=== PATIENT | male | born 1965 | race Caucasian/White ===

== ENCOUNTER 2020-06-29 05:56 | Inpatient (IN) ==
--- NOTE | 2020-02-03 13:07 | PAT Medication Instructions ---
Medication Instructions Date of Service February 03, 2020 Home Medications naproxen sodium [Aleve] 440 mg PO UD PRN propranolol 20 mg PO UD PRN ASK your surgeon for instructions naproxen sodium [Aleve] 440 mg PO UD PRN Take morning of surgery With a small sip of water, OTHERWISE NOTHING TO EAT OR DRINK AFTER MIDNIGHT: propranolol 20 mg PO UD PRN (if needed) Other Notes If you have any questions please call us at [phone] or [phone] or [phone] or [phone]
--- NOTE | 2020-06-08 16:34 | PAT Medication Instructions ---
Medication Instructions Date of Service June 08, 2020 Home Medications naproxen sodium [Aleve] 440 mg PO UD PRN propranolol 20 mg PO UD PRN ibuprofen [Advil] 400 mg PO UD PRN ASK your surgeon for instructions naproxen sodium [Aleve] 440 mg PO UD PRN ibuprofen [Advil] 400 mg PO UD PRN Take morning of surgery With a small sip of water, OTHERWISE NOTHING TO EAT OR DRINK AFTER MIDNIGHT: propranolol 20 mg PO UD PRN (if needed) Take evening before surgery propranolol 20 mg PO UD PRN (if needed) Other Notes If you have any questions please call us at [phone] or [phone] or [phone] or [phone]
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
--- NOTE | 2020-06-12 10:21 | XRay Report ---
TWO VIEW CHEST CLINICAL HISTORY: Preoperative examination. FINDINGS: PA and lateral chest radiographs are obtained. No prior studies are available for compariso n at the time of dictation. The cardiomediastinal silhouette is unremarkable. The lungs and pleural spaces are clear. There is no pneumothorax. The bony thorax appears intact. IMPRESSION: No active disease in the chest. ACT 112: Negative or not required by law. Electronically signed by: Walter Raymond M.D. 06/12/2020 10:20 AM
[2020-06-12 13:09] LABS: Basophils # (auto) 0.03 K/uL (0-0.2); Basophils % (auto) 0.3 %; Eosinophils # (auto) 0.22 K/uL (0-0.5); Hematocrit (blood only) 40.9 % (42-52); Hemoglobin 13.9 g/dL (14.0-18.0); Immature Granulocytes # (auto) 0.05 K/uL (0.00-0.02); Immature Granulocytes % (auto) 0.5 %; Lymphocytes # (auto) 2.62 K/uL (1.2-3.4); Lymphocytes % (auto) 23.9 %; Mean Corpuscular Hemoglobin 29.4 pg (25-34); Mean Corpuscular Volume 86.5 fL (80-100); Mean Platelet Volume 9.2 fL (7.4-10.4); Monocytes # (auto) 0.86 K/uL (0.11-0.59); Monocytes % (auto) 7.8 %; Neutrophils # (auto) 7.18 K/uL (1.4-6.5); Neutrophils % (auto) 65.5 %; Platelet Count 563 K/uL (130-400); RDW Coefficient of Variation 14.9 % (11.5-14.5); RDW Standard Deviation 47.3 fL (36.4-46.3); Red Blood Count 4.73 M/uL (4.7-6.1); White Blood Count 10.96 K/uL (4.8-10.8)
[2020-06-12 13:14] LABS: Appearance Urine Clear (Clear); Bilirubin Urine Negative (Negative); Blood Urine Negative (Negative); Color Urine Yellow; Glucose Urine UA Negative (Negative); Ketones Urine Negative (Negative); Leukocyte Esterase Urine Negative (Negative); Nitrite Urine Negative (Negative); Protein Urine Negative (Negative); Urobilinogen Urine Negative (Negative)
[2020-06-12 13:30] LABS: Partial Thromboplastin Ratio 1.1; Partial Thromboplastin Time 30.6 Seconds (21.0-31.0); Prothrombin Time 10.4 Seconds (9.0-12.0)
--- NOTE | 2020-06-12 13:41 | Electrocardiogram Report ---
Test Reason : Blood Pressure : / mmHG Vent. Rate : 069 BPM Atrial Rate : 069 BPM P-R Int : 190 ms QRS Dur : 104 ms QT Int : 420 ms P-R-T Axes : 077 -46 055 degrees QTc Int : 450 ms Normal sinus rhythm Left anterior fascicular block Abnormal ECG No previous ECGs available Confirmed by Randy Linn ([id number]) on 06/12/2020 1:41:18 PM Referred By: Karan Power Confirmed By:Randy Linn
[2020-06-12 14:08] LABS: Calcium 9.2 mg/dl (8.5-10.1); Creatinine Clr Calc Pharmacy 127.6 ml/min; Est GFR (African American) 101.6; Est GFR (Non-African American) 87.7; Potassium 4.2 mmol/L (3.5-5.1)
[2020-06-29] MEDS ORDERED: LR 15ML/HR IV SCH (06:00)
[2020-06-29] MEDS ORDERED: GABAPENTIN 900 MG DOSE PO SCH (06:00)
[2020-06-29] MEDS ORDERED: CLINDAMYCIN 600 MG/54 ML BAG IV SCH (06:00)
[2020-06-29] MEDS ORDERED: CEFAZOLIN 3000MG 72.5 ML IV SCH (06:00)
[2020-06-29] MEDS ORDERED: PROPOFOL IV EMULSION 10 MG/ML 20 ML VIAL IV ONE (06:52)
[2020-06-29] MEDS ORDERED: ROCURONIUM BROMIDE 10 MG/ML 5 ML VIAL IV ONE (06:52)
[2020-06-29] MEDS ORDERED: MIDAZOLAM HCL 1 MG/ML 2ML VIAL ONE (06:52)
[2020-06-29] MEDS ORDERED: LIDOCAINE HCL 2% 2 ML VIAL/AMP(20MG/ML) INFIL ONE (06:52)
[2020-06-29] MEDS ORDERED: fentaNYL citrate 100 MCG/2 ML VIAL ONE (06:53)
[2020-06-29] MEDS ORDERED: GLYCOPYRROLATE 0.2 MG/ML VIAL ONE (06:53)
[2020-06-29] MEDS ORDERED: NEOSTIGMINE METHYLSULFATE 1 MG/ML 10ML VIAL ONE (06:53)
[2020-06-29] MEDS ORDERED: MEPERIDINE HCL 25 MG/ML CARP/VIAL IV PRN (07:05)
[2020-06-29] MEDS ORDERED: ePHEDrine sulfate 50 MG/ML AMP IV PRN (07:05)
[2020-06-29] MEDS ORDERED: ONDANSETRON INJ 2 MG/ML 2 ML VIAL IV PRN ×2 (07:05→11:44)
[2020-06-29] MEDS ORDERED: METOCLOPRAMIDE HCL INJ 5 MG/ML 2 ML VIAL IV PRN ×2 (07:05→11:44)
[2020-06-29] MEDS ORDERED: ATROPINE SULFATE 0.1 MG/ML 10ML SYR IV PRN (07:05)
[2020-06-29] MEDS ORDERED: HYDROmorphone INJ 2 MG/ML SYR/VIAL IV PRN (07:05)
[2020-06-29] MEDS ORDERED: PROMETHAZINE HCL 12.5 MG in SODIUM CHLORIDE 0.9% 50 ML IV PRN ×2 (07:05→11:44)
[2020-06-29] MEDS ORDERED: PROPOFOL IV EMULSION 10 MG/ML 100 ML VIAL IV ONE (07:06)
[2020-06-29] MEDS ORDERED: BACITRACIN INJ 50,000 UNIT VIAL ONE (07:21)
--- NOTE | 2020-06-29 07:28 | History & Physical Bridge Note ---
Date of Service June 29, 2020 History & Physical Bridge Note I have examined the patient, reviewed the History & Physical and in the interval since the performance of the History & Physical I have noted the following changes of clinical significance: no changes noted
--- NOTE | 2020-06-29 07:29 | History & Physical Report ---
Date of Service June 29, 2020 Assessment & Plan (1) Cervical radiculopathy: C3-C5 anterior cervical discectomy and fusion Present on Admission?: Yes History of Present Illness Chief Complaint: Neck and arm pain Primary Care Provider: Kemal Astudillo DO This is a 55-year-old male who presents with chronic persistent neck and arm pain. After failing course of nonoperative care is here for surgical invention. Allergies Allergy/AdvReac Type Severity Reaction Status Date / Time Penicillins Allergy Unknown POSSIBLE Verified 06/29/20 06:26 ALLERGY, HX RASH WHILE USING Home Medications Home Medications Medication Instructions Recorded Confirmed Type naproxen sodium [Aleve] 440 mg PO UD PRN 01/31/20 06/29/20 History propranolol 20 mg PO UD PRN 01/31/20 06/29/20 History ibuprofen [Advil] 400 mg PO UD PRN 06/05/20 06/29/20 History Past Med/Surg History Family History Grandmother Family history of diabetes mellitus Social History Smoking Status: Never smoker Do You Dip or Chew Tobacco: No; Hx Alcohol Use: Yes (RARE) Alcohol type: beer Hx Substance Use: No Preferred Language: Salvadorean Communication Ability: Effective 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 Arms regular rate and rhythm. Lungs clear to auscultation. Results & Data Vital Signs (Past 12 Hours) Vital Signs Temp Pulse Resp BP Pulse Ox 06/29/20 06:28 37 C 87 20 145/94 H 96
[2020-06-29] MEDS ORDERED: ONDANSETRON INJ 2 MG/ML 2 ML VIAL ONE (08:25)
[2020-06-29] MEDS ORDERED: DEXAMETHASONE SOD INJ 4 MG/ML VIAL ONE (08:25)
[2020-06-29] MEDS ORDERED: FLOSEAL HEMOSTATIC MATRIX 10ML TOP ONE (09:50)
--- NOTE | 2020-06-29 09:55 | Operative Report ---
Post Operative Report Pre & Post Diagnosis Operation Date: 02/21/20 11:45 <No data on this case meets the specified criteria> Operation Date: 06/29/20 07:45 Pre-Op Diagnosis: Spinal Stenosis, Cervical Region Post-Op Diagnosis: Spinal Stenosis, Cervical Region I identified the patient and participated in the time-out.: Yes Procedure Operation Date: 02/21/20 11:45 <No data on this case meets the specified criteria> Operation Date: 06/29/20 07:45 Actual Procedures #1 anterior cervical discectomy with bilateral foraminotomies C3-4 and C4-5. #2 anterior cervical arthrodesis C3-4 and C4-5 per #3 placement of Spira 8 mm cage filled with DBM and see 3 4 and 10 mm in height filled with DBM at C4-C5. #4 application of 5 complete screws from C3-C5. Surgeon Karan Power, DO [employer] Applications Analyst Aryan Alvarez Estimated Blood Loss 20 Findings See Below The patient is 6 foot 2 inches tall weighing over 134 kg with a BMI of 38. The patient's body habitus did add significant technical difficulty adding at least 50% increase to the operative time. Specimens None Indications This is a 55-year-old male who presents with severe radiculopathy after failing extensive course of nonoperative care is here for the above-mentioned procedure. Description of Procedure Patient was met with identified informed consent obtained. Patient was then taken to the operative suite underwent an patient placed in a supine position Aris table at [place] nailhead puncher. Operative prominences well-padded eyes inspected to ensure no external pressure placed upon the. This point the anterior cervical spine was prepped and draped in a sterile fashion. The assistance of fluoroscopy identified the C4 vertebral body and a transverse incision was placed on the right anterior aspect of the cervical spine aligns region. Sharp dissection with assistance of bipolar electrocautery was performed down to and exposing the anterior cervical spine from C3-C5. Self- retaining retractor was then placed. Then performed a complete discectomy of C3-C4 out to the uncovertebral spur laterally. [place] distracting pins were utilized to assist in visualization. I removed all posterior fibers longitudinal ligament bilateral foraminotomies in excess amount of disc material identified and removed. Endplates were then burred to subcortical bleeding bone and an 8 mm spiral cage filled with DBM was tapped in position. Then proceeded C4-C5 again complete discectomy performed out to the uncovertebral's bilaterally. [place] distracting pins again utilized. Removed all posterior annular fibers longitudinal ligament bilateral foraminotomies performed. Endplates were then burred to subcortical leading bone and a 10 mm Spira cage filled with DBM tapped in position. Distracting apparatus was removed. All anterior osteophytes burred to a smooth cortical surface and a 5 complete screws applied with the assistance of fluoroscopy. The incision was then copiously irrigated explored to ensure no damage to surrounding structures remaining bleeding. 10 round TRENT drain inserted. The incision was then closed with 2 Vicryl in a fashion of 4 Monocryl for final skin closure. Steri-Strip sterile dressings placed. Patient waken taken PACU stable condition. Please note spinal cord monitoring was utilized that the procedure no changes noted. Lastly Aryan real was present at the entire procedure involved the patient po sitioning complex portions of the surgery and final skin closure. I attest to the content of the Intraoperative Record and any orders documented therein. Any exceptions are noted below.
--- NOTE | 2020-06-29 10:24 | Fluoroscopy Report ---
FL cervical 2-3V CLINICAL HISTORY: ACDF C3-C5 COMPARISON STUDY: None FLUOROSCOPY TIME: 9 seconds NUMBER OF FLUOROSCOPIC IMAGES: 2 FINDINGS: Image intensifier support for an anterior cervical fusion from C3 through C5. IMPRESSION: Image intensifier support for an anterior cervical fusion from C3 through C5. ACT 112: Negative or not required by law. The above report was generated using voice recognition software. It may contain grammatical, syntax or spelling errors. Electronically signed by: Kristofer Francisco M.D. 06/29/2020 10:23 AM
[2020-06-29] MEDS: fentaNYL citrate 100 MCG/2 ML VIAL IV PRN ×2 (10:28→10:35)
--- NOTE | 2020-06-29 11:29 | Anesthesiology Progress Note ---
Date of Service June 29, 2020 Anesthesia Post Procedure Vital Signs Vital Signs: Temp Pulse Pulse Resp BP BP Pulse Ox 06/29/20 11:25 59 L 15 146/92 H 99 06/29/20 11:10 36.5 C 71 16 141/99 H 97 06/29/20 11:00 74 17 146/87 H 98 06/29/20 10:50 68 16 136/86 97 06/29/20 10:40 57 L 15 140/86 100 06/29/20 10:30 74 14 138/76 99 06/29/20 10:20 36 C L 81 16 163/104 H 99 06/29/20 06:28 37 C 87 20 145/94 H 96 Pain Intensity Posterior Neck: Pain Intensity: 3 Transfer of Care Handoff Completed per policy Notes Mental Status: alert / awake / arousable and participated in evaluation Patient Amnestic to Procedure: Yes Nausea / Vomiting: adequately controlled Pain: adequately controlled Airway Patency, RR, SpO2: stable & adequate BP & HR: stable & adequate Hydration State: stable & adequate Anesthetic Complications: no major complications apparent
[2020-06-29] MEDS: LACTATED RINGER'S 1,000 ML IV SCH ×2 (11:40→18:44)
[2020-06-29] MEDS ORDERED: DO NOT ADMINISTER FLU VACCINE PRN (11:44)
[2020-06-29] MEDS ORDERED: FAMOTIDINE 20 MG TAB PO PRN (11:44)
[2020-06-29] MEDS ORDERED: HYDROmorphone INJ 1 MG/ML SYRINGE IV PRN (11:44)
[2020-06-29] MEDS ORDERED: LORazepam 0.5 MG TAB PO PRN (11:44)
[2020-06-29] MEDS ORDERED: RACEPINEPHRINE 2.25% NEBU SOLN 0.5 ML VIAL INH PRN (11:44)
[2020-06-29] MEDS ORDERED: DEXAMETHASONE SOD PHOSPHATE 8 MG in SYRINGE 0 ML IV PRN (11:44)
[2020-06-29] MEDS ORDERED: TRAMADOL HCL 50 MG TABLET PO PRN (11:44)
[2020-06-29] MEDS ORDERED: ONDANSETRON 4 MG OD TAB PO PRN (11:44)
[2020-06-29] MEDS ORDERED: DO NOT ADMINISTER PNEUMOCOCCAL VACCINE PRN (11:44)
[2020-06-29] MEDS ORDERED: NALOXONE HCL 0.4 MG/1 ML VIAL/CARP IV PRN (11:44)
[2020-06-29] MEDS ORDERED: MAGNESIUM HYDROXIDE SUSP 30 ML UDC PO PRN (11:44)
[2020-06-29] MEDS ORDERED: ALUMINUM/MAGNESIUM SUSP 30 ML UDC PO PRN (11:44)
[2020-06-29] MEDS ORDERED: ACETAMINOPHEN 1,000 MG/100 ML VIAL IV PRN (11:44)
[2020-06-29] MEDS ORDERED: SOD PHOSPHATE/SOD BIPHOSPHATE ENEMA 132 ML BTL PR PRN (11:44)
[2020-06-29] MEDS ORDERED: LORazepam 0.5 MG/1 ML VIAL IV PRN (11:44)
[2020-06-29] MEDS ORDERED: HYDROmorphone INJ 0.5 MG/0.5 ML SYR IV PRN (11:44)
[2020-06-29] MEDS: OXYCODONE HCL IR 5 MG TAB (IMMEDIATE RELEASE) PO PRN ×2 (14:04→22:41)
[2020-06-29] MEDS: CLINDAMYCIN 600 MG in DEXTROSE 5% 50 ML IV SCH ×2 (16:49→23:14)
[2020-06-29] MEDS ORDERED: DOCUSATE SODIUM/SENNA 50/8.6MG TAB PO SCH (21:00)
[2020-06-29] MEDS: ACETAMINOPHEN 500 MG TAB PO PRN (22:41)
[2020-06-30] MEDS: LACTATED RINGER'S 1,000 ML IV SCH (02:28)
[2020-06-30] MEDS ORDERED: POLYETHYLENE (MIRALAX) 17 GM PACK PO SCH (06:00)
[2020-06-30] MEDS: ACETAMINOPHEN 500 MG TAB PO PRN (06:07)
--- NOTE | 2020-06-30 09:43 | Discharge Summary ---
Date of Service June 30, 2020 Admission HPI Per Admitting Provider This is a 55-year-old male who presents with chronic persistent neck and arm pain. After failing course of nonoperative care is here for surgical invention. Principal Diagnosis Cervical radiculopathy Discharge Data Allergies Allergy/AdvReac Type Severity Reaction Status Date / Time Penicillins Allergy Unknown POSSIBLE Verified 06/29/20 06:26 ALLERGY, HX RASH WHILE USING Procedures Performed Operation Date: 02/21/20 11:45 <No data on this case meets the specified criteria> Operation Date: 06/29/20 07:45 Actual Procedures p C3-C5 Anterior Cervical Discectomy and Fusion, Spinal Cord Monitoring(Not Applicable) - Karan Power DO Ordered Studies 06/29/20 07:45 FL cervical 2-3V Routine FL fluoroscopy <1hr Routine Hospital Course (1) Cervical radiculopathy: Patient underwent anterior cervical discectomy and fusion tolerated as well as taken to orthopedic for postoperative. Postop day 1 he had excellent strength testing swallowing well. No hoarseness. Subsequently discharged home. Discharge orders instructions from the chart for further view. Total Time Total Time Spent Total Time Spent (In Minutes): 20 minutes Discharge Plan Discharge Items Patient Disposition: Home - Self-Care Reason For Visit: Spinal Stenosis, Cervical Region Discharge Diagnosis: Cervical disc condition with radiculopathy Activity: As commented below Non-emergency contact: Primary Care Provider Call non-emergency contact if: you have any medication questions Follow-up/Referrals: Kemal Astudillo DO [Primary Care Provider] - Diet: Regular Addtl Attending Provider Instructions: ACTIVITY RECOMMENDATIONS: SELF CARE INSTRUCTIONS AFTER THORACIC/LUMBAR FUSIONS 1. You may walk to your tolerance. It is good exercise for your legs and back. Expect some back and intermittent leg aches and pains. 2. You may perform "counter-top" level activities (make a sandwich, stella with a project, etc.). 3. No bending or lifting of more than 10 pounds or back twisting of any nature (roll like a log when turning in bed). 4. You may ride in a car for 20-30 minutes at a time. No driving until after your first visit with your doctor. 5. Frequent changes of position and restricting sitting to 30 minutes at a time will help limit the amount of back spasms and stiffness you may experience. 6. You may discontinue the use of ambulatory aids (cane, crutches, etc.) once your strength and confidence allow. 7. You may neighborhood coordinator the shower and let water strike your incision when you arrive home at least once daily. Do not take a tub bath, sit in a hot tub or go into a swimming pool until after your first recheck in the office. SPECIAL CARE INSTRUCTIONS: VERY IMPORTANT TO READ AND REVIEW A. Your surgical incision has been closed with a cosmetic suture under the skin that will dissolve in about 6 weeks. In 14 days, you can use a pair of clean scissors and cut the suture that is left outside of the skin at the ends of your incision. 1. The small skin tapes can be removed 7 days after surgery if they have not fallen off by that point. 2. You may keep the wound open to air as much as possible to promote healing after post-op day number 5 unless told otherwise by your doctor. 3. If you think the wound looks like it is becoming infected (redness or worsening drainage) and/or you are experiencing fever, chill or worsening back pain and muscle spasms, contact the office so that we may evaluate you as soon as possible. B. Complications are uncommon, but please contact us if you have any signs or symptoms of: 1. wound infection (fever higher than 102.5 degrees F, redness, separation of wound, drainage, or increasing pain from the incision) 2. blood clots in legs (pain, swelling, redness and warmth in legs) 3. urinary tract infection (fever higher than 102.5 degrees F, burning upon urination or increased frequency of urination) 4. nerve problems (inability to walk on your toes or heels, numbness, loss of bowel or bladder control) 5. any other symptoms that concern you C. Please call the office at if you have any concerns or questions about your operation or recovery. D. No smoking! Smoking drastically decreases the chance of a solid fusion. E. Do not take any anti-inflammatory medications (Indocin, Advil, Motrin, Aspirin, Naprosyn, etc.) as these may inhibit the chance of a solid fusion. Tylenol is okay to take for pain. MANAGING PAIN AFTER SPINAL SURGERY 1. Narcotic medication is intended for short-term use and will be provided for surgical pain. Surgical pain usually lasts for a period of 4-6 weeks. Narcotic medication includes Percocet, Vicodin, Darvocet, Tylenol #3 or Lortab. 2. Longer-term pain is more appropriately treated with non-narcotic medication such as Tylenol ES. 3. Muscle spasm is not appropriately treated with narcotics. Muscle relaxers such as Soma, Flexeril or Skelaxin can be used along with Tylenol ES. 4. Remember that we all live with some "aches and pains". This is not unusual or uncommon after an injury or as we get older. a. Back pain is expected and may include muscle spasms for 4 to 6 weeks after surgery. The pain should gradually improve. If the pain worsens for no apparent reason, please contact the office. b. Intermittent leg pain may also be experienced and should not be concerned about unless it worsens for no apparent reason. If so, please contact the office. 5. We will provide appropriate medication within the normal guidelines of their prescribed use. We will also be very cautious and aware of potential abuse and extended duration of patients' medication needs. a. Pain medications are for your comfort and to assist with sleep and rest s o that the tissue can heal. They are not provided in order to return to normal activity and should not be used through the day. To do so or worsening pain at night can result from ongoing tissue damage and development of tolerance to the prescribed medicine. 6. Please allow 2-3 days to process refills. Prescriptions will not be mailed but must be picked up at the office. FOLLOW UP VISIT: Keep your scheduled follow-up appointment. Any questions, please call the office at . Pending Studies at Discharge: No Stand-Alone Forms: [facility], Smoking Cessation Medications and DC Order Prescriptions: New tramadol 50 mg tablet 50 mg PO Q6H PRN (Reason: pain, moderate) Qty: 15 RF: 0 oxycodone 5 mg tablet 5 mg PO Q6H PRN (Reason: pain, severe) Qty: 15 RF: 0 Continued propranolol 20 mg Tablet 20 mg PO UD PRN (Reason: Anxiety) RF: 0 Discontinued naproxen sodium [Aleve] 220 mg Capsule 440 mg PO UD PRN (Reason: Pain) RF: 0 ibuprofen [Advil] 200 mg Tablet 400 mg PO UD PRN (Reason: Pain) RF: 0 Discharge Orders: Discharge Order (Routine); Ordered 06/30/20 Ordered By: Karan Power Admission Data Admit Date/Time: 06/29/20 10:51 Attending Provider: Karan Power Admit Provider: Karan Power Primary Care Provider: Kemal Astudillo
[2020-07-01] MEDS ORDERED: bisacodyL 10 MG SUPP PR PRN (09:55)
== END 2020-06-30 12:05 | disposition home or self-care (01) | DRG 30 ==
LOC: ASU 05:56 → 3E 05:56 → OBSVTOIN 10:51